=== PATIENT | male | born 1990 ===

== ENCOUNTER 2025-02-14 13:51 | Outpatient (CLI) | payer OTHER, SELFPAY ==
--- NOTE | 2025-02-14 15:19 | P.ANES_ITS ---
Anesthesia Charges Start Date/Time Anesthesia Start Date: 02/14/25 Anesthesia Start Time: 14:36 Stop Date/Time Anesthesia Stop Date: 02/14/25 Anesthesia Stop Time: 15:15 Coding CPT Codes CPT Codes: DIPIKA LWR INTST NDCT NOS - [id number] ([id number]) P1 - NORMAL HEALTHY PATIENT, QK - VULNERABILITY ASSESSMENT ANALYST 2-4 CNCRNT ANES PROC, QX - CLINICAL APPEALS SPECIALIST SVC W/ MED DIRECTION
--- NOTE | 2025-02-14 15:19 | P.ANES_ITS ---
Anesthesia Charges Start Date/Time Anesthesia Start Date: 02/14/25 Anesthesia Start Time: 14:36 Stop Date/Time Anesthesia Stop Date: 02/14/25 Anesthesia Stop Time: 15:15 Coding CPT Codes CPT Codes: DIPIKA LWR INTST NDUT NOS - 10510 ([id number]) P1 - NORMAL HEALTHY PATIENT, QK - RETAIL CONSULTANT 2-4 CNCRNT ANES PROC, QX - HIDE HANDLER SVC W/ MED DIRECTION
--- NOTE | 2025-02-14 15:19 | W.ANESCHARGE ---
Anesthesia Charges Start Date/Time Anesthesia Start Date: 02/14/25 Anesthesia Start Time: 14:36 Stop Date/Time Anesthesia Stop Date: 02/14/25 Anesthesia Stop Time: 15:15 Coding CPT Codes CPT Codes: DIPIKA LWR INTST NDND NOS - [id number] ([id number]) P1 - NORMAL HEALTHY PATIENT, QK - FACILITY MANAGER 2-4 CNCRNT ANES PROC, QX - OPERATIONS SUPPORT MANAGER SVC W/ MED DIRECTION
--- NOTE | 2025-02-14 15:19 | W.ANESCHARGE ---
Anesthesia Charges Start Date/Time Anesthesia Start Date: 02/14/25 Anesthesia Start Time: 14:36 Stop Date/Time Anesthesia Stop Date: 02/14/25 Anesthesia Stop Time: 15:15 Coding CPT Codes CPT Codes: DIPIKA LWR INTST NDIL NOS - 13532 ([id number]) P1 - NORMAL HEALTHY PATIENT, QK - DETECTIVE 2-4 CNCRNT ANES PROC, QX - SUPERVISOR SPRING UP SVC W/ MED DIRECTION
== END 2025-02-14 13:52 | disposition home or self-care (01) ==
LOC: OP CLINIC 13:53
PROVIDERS: PCP Family Medicine; Visit Provider Surgery
DX: Z12.11 Encounter for screening for malignant neoplasm of colon (principal); D12.3 Benign neoplasm of transverse colon; D12.4 Benign neoplasm of descending colon; K62.89 Other specified diseases of anus and rectum; K64.8 Other hemorrhoids
CPT/HCPCS: 00811; 00812; 45380; 45385; J2704

== ENCOUNTER 2025-02-28 16:06 | Outpatient (CLI) | payer OTHER, SELFPAY | END 2025-02-28 16:07 | disposition home or self-care (01) | PROVIDERS: PCP Family Medicine; Visit Provider Family Medicine | DX: Z00.00 Encounter for general adult medical examination without abnormal findings (principal); E55.9 Vitamin D deficiency, unspecified | CPT/HCPCS: 80053; 80061; 82306; 85025; 86141 ==